=== PATIENT | female | born 1980 | race Caucasian/White ===

== ENCOUNTER 2019-02-01 06:02 | Day surgery (SDC) | payer OTHER, SELFPAY ==
[2019-02-01] VITALS (7 sets, daily range): BP systolic 113–122; BP diastolic 66–81; PULSE 60–81; RESP 16–18; TEMP 36.5–36.7; O2SAT 97–100; BMI 29.5
[2019-02-01 06:34] LABS: Internal QC Validated? YES +Cl - CLEAR BKGD; Pregnancy, Urine Negative Negative
--- NOTE | 2019-02-01 07:32 | DCINST_ITS ---
Discharge Diet: No Restrictions Discharge Activity: Return to Normal Activity Additional Activity Instructions:: Ear drops 5 drops left ear twice a day for 4 days. Allergies/Adverse Reactions: Allergies No Known Allergies Allergy (Verified 02/01/19 06:27) Medications to take at Discharge Mometasone Furoate [Nasonex] 1 spray NASAL BID 01/28/19 Primary Care Physician: Colby Benito MD [Primary Care Provider] - Test Results: Test results from this visit will be discussed in further detail at your follow- up appointment, if applicable.
[2019-02-01] MEDS: Ciprofloxacin 0.3% 2.5ml Bottle 1 DRP (07:44)
--- NOTE | 2019-02-01 07:45 | PCM.OPRPT ---
Report of Operation Date of Procedure: 02/01/19 Pre-Operative Diagnosis: chronic serous otitis media left ear Post-Operative Diagnosis: same Surgery/Procedure Performed:: Left myringtomy with tube Description of Surgical Findings:: clear middle ear fluid Type of Anesthesia:: General Anesthesiologist: Teddy Bingham Estimated Blood Loss (mL): none Description of Procedure: The patient was taken to the OR on 02/01/19. She was placed in the supine position on the OR table. She was given sufficient general anesthesia. The operating microscope was used throughout the entire case. A speculum was inserted into the left ear. The old tube was removed. An incision was placed in the anterior inferior quadrant. Clear fluid was suctioned from the middle ear space with a #3 suction. A Prisca Bobin tube was placed without difficulty. Cipro drops were instilled into the ear. She was awoken and brought to the recovery room in stable condition. Blood loss none. sponge, needle and instrument count were correct at the end of the procedure.
== END 2019-02-01 09:05 | disposition home or self-care (01) ==
LOC: SDC 06:04 → AC 06:06
PROVIDERS: Anesthesiology; Family Provider Family Medicine; PCP Family Medicine; Referring Provider Otolaryngology; Visit Provider Otolaryngology
PROC: (CPT 69436; principal; 2019-02-01 07:25)
DX: H65.22 Chronic serous otitis media, left ear (principal); H90.12 Conductive hearing loss, unilateral, left ear, with unrestricted hearing on the contralateral side; H69.83 Other specified disorders of Eustachian tube, bilateral
CPT/HCPCS: 69436; 81025; J2405

== ENCOUNTER → 2019-05-22 | Outpatient (CLI) | payer OTHER, SELFPAY ==
[2019-02-01 06:27] VITALS: BMI 29.5
== END | disposition home or self-care (01) ==
LOC: LABSPEC 12:23
PROVIDERS: PCP Family Medicine; Referring Provider Otolaryngology; Visit Provider Otolaryngology
DX: H92.10 Otorrhea, unspecified ear (principal)
CPT/HCPCS: 87070; 87075; 87077; 87186; 87205

== ENCOUNTER → 2021-01-16 | Outpatient (CLI) | payer OTHER, SELFPAY | END | disposition home or self-care (01) | LOC: LABSPEC 14:57 | PROVIDERS: PCP Family Medicine; Referring Provider Otolaryngology; Visit Provider Otolaryngology | DX: Z11.52 Encounter for screening for COVID-19 (principal) | CPT/HCPCS: 87635; U0005; U0003 ==

== ENCOUNTER → 2021-01-22 | Outpatient (CLI) | payer OTHER, SELFPAY | END | disposition home or self-care (01) | LOC: LABSPEC 15:20 | PROVIDERS: PCP Family Medicine; Visit Provider Otolaryngology | DX: H65.22 Chronic serous otitis media, left ear (principal) ==

== ENCOUNTER 2022-12-31 09:19 | Emergency (ER) | payer OTHER, SELFPAY ==
[2022-12-31 09:21] VITALS: BP 136/81; PULSE 64; RESP 14; TEMP 37.1; O2SAT 99; BMI 29.2
--- NOTE | 2022-12-31 09:32 | EDS_ITS ---
HPI HPI - GI History of Present Illness Chief Complaint: Abd Pain Narrative Narrative: 42-year-old female with right lower quadrant pain. She states it radiates into the right lower back. Patient states onset was about 5 AM this morning was acute. She describes it as sharp and burning. Patient states she does not believe she is , but does state that she has painful ovulation. She denies any history of ovarian cyst however. No urinary or vaginal complaints. No constipation or diarrhea. She has mild nausea. No fevers or chills. Patient states she called her [employer] and was referred to the urgent care and she states the urgent care checked her urinalysis and sent her to the ED. PFSH PFSH Home Medications mometasone 50 mcg/actuation nasal spray 1 spray NASAL BID 01/28/19 [History Last Taken Unknown] ondansetron 4 mg disintegrating tablet 4 mg PO Q8H PRN PRN Nausea #14 tabs 12/31/22 [Rx Last Taken Unknown] oxycodone 5 mg tablet 5 mg PO BID PRN pain 3 days #12 tabs 12/31/22 [Rx Last Taken Unknown] Allergy/AdvReac Type Severity Reaction Status Date / Time No Known Allergies Allergy Verified 12/31/22 09:25 Social History Smoking Status: Never smoker ROS ROS ED Constitutional Constitutional ED: Denies chills, fever(s) or sweats Eyes Eyes: Denies blurry vision or change in vision ENT ENT ED: Denies ear pain or sore throat Cardiovascular Cardiovascular: Denies chest pain, palpitations or racing heartbeat Respiratory/Chest Respiratory/Chest: Denies cough, dyspnea or sputum Gastrointestinal Gastrointestinal: Reports abdominal pain and nausea; Denies constipation, diarrhea or vomiting Genitourinary Genitourinary ED: Denies dysuria, hematuria or urinary frequency Musculoskeletal Musculoskeletal: Denies arthralgias, myalgias or neck pain Integumentary Denies abscess, Abrasions or rash Neurologic Neurologic: Denies headache(s), paresthesias or weakness Psychiatric Psychiatric: Denies anxiety, depression, suicidal ideation or suicidal thoughts Endocrine Endocrinology: Denies polydipsia or polyuria EXAM Physical Exam Const Vital Signs: 12/31/22 09:21 Temperature 98.7 F Temperature Source Temporal Pulse Rate 64 Respiratory Rate 14 Blood Pressure 136/81 H Blood Pressure Mean 99 Pulse Ox 99 Oxygen Delivery Method Room Air Positive well nourished General Appearance ED: NAD; Negative for pallor HEENT Reports moist mucous membranes normocephalic and atraumatic Eyes PERRL Resp normal respiratory effort Auscultation: Negative for rales, rhonchi or wheezes Cardio regular rate and regular rhythm GI Palpation: tender RLQ Neuro CN's II-XII intact bilaterally and moves all extremities Sensorium / Orientation: alert Motor Exam: strength 5/5 throughout Psych mental status grossly normal Skin General Skin Exam: Negative for jaundice or pallor MDM MDM MDM Narrative Medical decision making narrative: Patient presenting with right lower quadrant abdominal pain. This is acute in onset. Differential includes ovarian cyst, ovarian torsion, , UTI, pyelonephritis, colitis, constipation, dehydration, electrolyte abnormalities. CBC will be obtained to assess white blood cell count, hemoglobin, platelets, differential. BMP to assess renal function, electrolytes, glucose. Urinalysis to assess for UTI. hCG to assess for . Does not believe she is however. Patient medicated with Toradol and Zofran. On reevaluation at 9:54 AM she states she still having some pain but declines any further analgesia. Patient was then subsequently requesting something stronger was given morphine 4 mg. CBC shows a normal white blood cell count at 6.4. Hemoglobin 12.8. Platelets normal at 225. Renal function electrolytes unremarkable. Serum hCG negative. Urinalysis negative. CT of the abdomen pelvis was obtained and shows what looks like a dermoid cyst. The radiologist recommends an ultrasound to better clarify this. Transvaginal ultrasound was obtained and shows evidence of a dermoid cyst. Patient still having a lot of pain on exam was given a second dose of morphine. Findings were discussed with Dr. Jessica Arias who did come to see the patient at the bedside given her pain and abnormal findings on imaging. At this point is to send the patient home with oxycodone, Zofran. I recommended that she also do MiraLAX at home as she has a lot of stool burden on her CT. She is to drink plenty of fluids. Return precautions were discussed at length. Plan currently is for outpatient surgery. Impression: 1. Dermoid cyst 2. Nausea 3. Constipation Lab Data Attestation: I reviewed the patient's lab results. Labs: Laboratory Results - last 24 hr 12/31/22 12/31/22 09:31 10:26 WBC 6.4 RBC 4.17 L Hgb 12.8 Hct 39.2 MCV 94.0 MCH 30.7 MCHC 32.7 RDW Std Deviation 43.1 RDW Coeff of Micki 12.4 Plt Count 225 MPV 9.0 Immature Gran % (Auto) 0.300 Neut % (Auto) 75.4 H Lymph % (Auto) 18.5 L [place] % (Auto) 4.7 Eos % (Auto) 0.8 Baso % (Auto) 0.3 Absolute Neuts (auto) 4.8 Absolute Lymphs (auto) 1.18 Nucleated RBC % 0 Sodium 139 Potassium 3.9 Chloride 110 H Carbon Dioxide 25.0 Anion Gap 4 L BUN 28 H Creatinine 0.85 Estim Creat Clear Calc 75.21 Est GFR (MDRD) Af Amer 94 Est GFR (MDRD) Non-Af 78 BUN/Creatinine Ratio 32.9 H Glucose 93 Calcium 8.6 Serum , Qual NEGATIVE Urine Color Yellow Urine Clarity Clear Urine pH 5.0 Ur Specific [place] 1.025 Urine Protein Negative Urine Glucose (UA) Normal Urine Ketones Negative Urine Occult Blood Negative Urine Nitrite Negative Urine Bilirubin Negative Urine Urobilinogen Normal Ur Leukocyte Esterase 25 H Urine RBC 0 SEEN Urine WBC 0-5 SEEN Ur Squamous Epith Cells 0 SEEN Urine Bacteria 0 SEEN Urine Mucus 0 SEEN Radiography Diagnostic Testing: Clinical Impression(s) from Imaging Studies Abdomen/Pelvis CT 12/31/22 10:06 IMPRESSION: Findings suggestive of a dermoid in the right adnexa as described above. Correlation with a ultrasound of the pelvis is recommended. Enlarged uterus. Electronically Signed: Lucas Gomez MD at 10:57 EDT , Transvaginal US 12/31/22 11:01 IMPRESSION: Complex mass in the right adnexa as described in keeping with the CT findings suggestive of a dermoid cyst. Electronically Signed: Lucas Gomez MD at 12:22 EDT , ADDENDUM: 12/31/22 1332 IMPRESSION: undefined Discharge Plan Triage Chief Complaint: Abd Pain ED Provider: Nikolai Cisse Dx/Rx/DC Orders Instructions: Ovarian Cysts Prescriptions: New oxycodone 5 mg tablet 5 mg PO BID PRN (Reason: pain) 3 Days Qty: 12 0RF ondansetron 4 mg tablet,disintegrating 4 mg PO Q8H PRN PRN (Reason: Nausea) Qty: 14 0RF No Action mometasone 1 SPRAY spray,non-aerosol 1 spray NASAL BID Primary Care Provider: Care Physician,No Primary Referrals: Geovanny Arias MD [Med Staff - Active Staff] - As soon as possible Care Physician,No Primary [Primary Care Provider] - Disposition Disposition: Home, Self Care
[2022-12-31] MEDS: Ketorolac 30 MG/ML Syringe 15 MG IV (09:37)
[2022-12-31] MEDS: Ondansetron 4 MG/2 ML Vial IV (09:37)
[2022-12-31 09:45] LABS: Absolute Lymphocyte Count 1.18 X10^3/uL (0.83-4.51); Absolute Neutrophil Count 4.8 X10^3/uL (2.0-7.7); Basophil# 0.02 X10^3/uL; Basophil% 0.3 % (0-1); Eosinophil# 0.05 X10^3/uL; Eosinophils% 0.8 % (0-5); Hematocrit 39.2 % (37-47); Hemoglobin 12.8 g/dL (12.0-15.0); Lymphocyte # 1.18 X10^3/ul (0.83-4.51); Lymphocyte % 18.5 % (19-41); Mean Corp Hgb Conc 32.7 g/dL (32-36); Mean Corpuscular Hgb 30.7 pg (27.0-32.0); Monocyte% 4.7 % (0-10); NRBC Flagged by Analyzer 0 % (0-5); Neutrophil # 4.81 X10^3/uL (2.7-7.7); Neutrophil % 75.4 % (47-70); Platelet Count 225 K/mm3 (150-450); RBC Distribution Width CV 12.4 % (11.6-14.6); RBC Distribution Width SD 43.1 fl (35.1-43.9); Red Blood Count 4.17 M/mm3 (4.2-5.4); White Blood Count 6.4 K/mm3 (4.4-11.0)
[2022-12-31 09:59] LABS: Anion Gap 4 (5-15); BUN 28 mg/dL (7-18); BUN/Creat Ratio 32.9 RATIO (10-20); Calcium,Total 8.6 mg/dL (8.5-10.1); Chloride 110 mmol/L (98-107); Creatinine, Serum 0.85 mg/dL (0.55-1.02); EST Glomerular Filtration Rate 78 mL/min (>60); Est Glom Filt Rate - Afr Amer 94 mL/min (>60); Estimated Creatinine Clearance 75.21 ml/min; Glucose 93 mg/dL (74-106); Potassium 3.9 mmol/L (3.5-5.1); Sodium Level 139 mmol/L (136-145)
[2022-12-31 10:05] LABS: Internal QC Validated? YES +Cl - CLEAR BKGD; Pregnancy, Serum, hCG Quali. NEGATIVE Negative
--- NOTE | 2022-12-31 10:06 | CT_ITS ---
STUDY: CT ABDOMEN AND PELVIS WITHOUT CONTRAST REASON FOR EXAM: Female, 42 years old. Right lower quadrant pain. Nausea. RADIATION DOSAGE (If Supplied By Facility): CTDIvol = ( 8.83 ) mGy, DLP = ( 426.21 ) mGycm TECHNIQUE: Transaxial images were obtained from the dome of the diaphragm to the symphysis pubis without oral contrast, and without intravenous contrast. Sagittal and coronal images were reconstructed. Individualized dose optimization techniques were used for this CT. COMPARISON: None. FINDINGS: The visualized lung bases are unremarkable. The visualized portions of the heart are within normal limits. Normal liver. Normal gallbladder and extrahepatic biliary system. Normal spleen. Normal pancreas. Normal bilateral adrenal glands. Normal right kidney. Normal left kidney. Normal visualized stomach. Normal small intestine. Large amount of fecal material is seen in the colon. The appendix is visualized and appears normal. There is scattered atherosclerotic calcification of the abdominal aorta, without a demonstrated aneurysm. Normal inferior vena cava. Normal retroperitoneum. Normal urinary bladder. There is a 4.57 x 4.5 cm hypodense mass in the right adnexa with dense calcification along its inferior lateral portion. A focus of fat is seen within the. This is suggestive of a dermoid. Uterine enlargement. Normal abdominal wall. This space narrowing and disc degeneration with spondylosis at the L4-L5 level. CT/Abdomen/Pelvis without Cont IMPRESSION: Findings suggestive of a dermoid in the right adnexa as described above. Correlation with a ultrasound of the pelvis is recommended. Enlarged uterus. Electronically Signed: Lucas Gomez MD at 10:57 EDT ,
[2022-12-31 10:34] LABS: Bacteria 0 SEEN /hpf (None Seen); Mucous, Urine 0 SEEN /hpf (<or=2+); Red Blood Cells-Urine 0 SEEN /hpf (0-5); Squamous Epithelial Cells - UA 0 SEEN /hpf (5-10)
[2022-12-31 10:38] LABS: Color, Urine Yellow (Yellow); Glucose, Dipstick Normal (Normal); Ketone-Dipstick Negative (Negative); Leukocyte Esterase-Dipstick 25 /ul (Negative); Nitrite-Dipstick Negative (Negative); Occult Blood-Urine Negative /ul (Negative); Protein-Dipstick Negative (Negative); Specific Gravity, Urine 1.025 (1.002-1.030); Urine Bilirubin Dipstick Negative (Negative); Urine Clarity Clear (Clear); Urine Urobilinogen Normal (Normal)
[2022-12-31 10:52] LABS: White Blood Cells 0-5 SEEN /hpf (0-5)
[2022-12-31] MEDS: Morphine 4 MG/ML Syringe IV ×2 (10:52→12:29)
--- NOTE | 2022-12-31 11:01 | US_ITS ---
STUDY: ULTRASOUND OF THE FEMALE PELVIS - COMPLETE REASON FOR EXAM: Female, 42 years old. Dermoid cyst LMP: December 17, 2022. TECHNIQUE: Transvaginal TECHNICAL QUALITY: Adequate. COMPARISON: Comparison is made with prior CT scan of the abdomen and pelvis done earlier in the day. FINDINGS: The uterus is anteverted and is in a midline position. The uterus measures 11.9 cm x 7.4 cm x 5.9 cm. Normal uterine cervix. The endometrium measures 14.2 mm in thickness, and is heterogeneous (striated). There is no demonstrated endometrial mass. There is no demonstrated myometrial mass. I.U.D. - The patient does not have an I.U.D. The right ovary is visualized. The right ovary measures 6.8 cm x 6.3 cm x 3.8 cm. Within it, is a complex heterogeneous mass measuring 5.6 cm x 4.5 sided by 4 cm. Calcification is seen within it and this corresponds to the CT findings. This most likely represents a very malignant. There is also evidence of a 2.6 cm x 2.1 cm x 2.5 cm complex cystic structure adjacent to the previously mentioned nodule. There is no visualized right adnexal mass or complex lesion. There is normal arterial and normal venous vascularity. The left ovary is visualized. The left ovary measures 2.5 cm x 2.9 cm x 1.7 cm. There is no left ovarian cyst or ovarian mass. There is no visualized left adnexal mass or complex lesion. There is normal arterial and normal venous vascularity. There is minimal fluid in the cul-de-sac. US/Transvaginal Non- IMPRESSION: Complex mass in the right adnexa as described in keeping with the CT findings suggestive of a dermoid cyst. Electronically Signed: Lucas Gomez MD at 12:22 EDT ,
[2022-12-31] MEDS: 0.9% Normal Saline (1000mL) 1,000 ML 999 ML IV (12:29)
--- NOTE | 2022-12-31 13:43 | HP.PCM_ITS ---
HPI - General General Date of Service: 12/31/22 Chief Complaint: Abdominal pain HPI Narrative MARIA D SUN, is a 42 F who presents with lower abdominal pain. Pain started earlier this morning and is sharp in nature. She is ovulating at this time and usually has pain with this but not so intense. Pain radiates to the back & is worse on the right side. Morphine has helped with pain. PFSH Home Medications mometasone 50 mcg/actuation nasal spray 1 spray NASAL BID 01/28/19 [History Last Taken Unknown] ondansetron 4 mg disintegrating tablet 4 mg PO Q8H PRN PRN Nausea #14 tabs 12/31/22 [Rx Last Taken Unknown] oxycodone 5 mg tablet 5 mg PO BID PRN pain 3 days #12 tabs 12/31/22 [Rx Last Taken Unknown] Allergy/AdvReac Type Severity Reaction Status Date / Time No Known Allergies Allergy Verified 12/31/22 09:25 Social History Smoking Status: Never smoker Vital Signs Vital Signs Vital Signs: 12/31/22 09:21 Temperature 98.7 F Temperature Source Temporal Pulse Rate 64 Respiratory Rate 14 Blood Pressure 136/81 H Blood Pressure Mean 99 Pulse Ox 99 Oxygen Delivery Method Room Air Weight Weight: 170 lb 1.6 oz Body Mass Index (BMI) 29.2 Physical Exam Const alert, oriented x3 and no apparent distress Resp normal respiratory effort GI soft to palpation GI Narrative: mild RLQ tenderness, otherwise NT Extremity no calf tenderness Results Lab / Micro Data Attestation: I reviewed the patient's lab results. 12/31/22 09:31 12/31/22 09:31 Labs: Laboratory Results - last 24 hr 12/31/22 09:31: WBC 6.4, RBC 4.17 L, Hgb 12.8, Hct 39.2, MCV 94.0, MCH 30.7, MCHC 32.7, RDW Std Deviation 43.1, RDW Coeff of Micki 12.4, Plt Count 225, MPV 9.0, Immature Gran % (Auto) 0.300, Neut % (Auto) 75.4 H, Lymph % (Auto) 18.5 L, [place] % (Auto) 4.7, Eos % (Auto) 0.8, Baso % (Auto) 0.3, Absolute Neuts (auto) 4.8, Absolute Lymphs (auto) 1.18, Nucleated RBC % 0, Sodium 139, Potassium 3.9, Chloride 110 H, Carbon Dioxide 25.0, Anion Gap 4 L, BUN 28 H, Creatinine 0.85, Estim Creat Clear Calc 75.21, Est GFR (MDRD) Af Amer 94, Est GFR (MDRD) Non-Af 78, BUN/Creatinine Ratio 32.9 H, Glucose 93, Calcium 8.6, Serum , Qual NEGATIVE 12/31/22 10:26: Urine Color Yellow, Urine Clarity Clear, Urine pH 5.0, Ur Specific [place] 1.025, Urine Protein Negative, Urine Glucose (UA) Normal, Urine Ketones Negative, Urine Occult Blood Negative, Urine Nitrite Negative, Urine Bilirubin Negative, Urine Urobilinogen Normal, Ur Leukocyte Esterase 25 H, Urine RBC 0 SEEN, Urine WBC 0-5 SEEN, Ur Squamous Epith Cells 0 SEEN, Urine Bacteria 0 SEEN, Urine Mucus 0 SEEN Radiology Impression Abdomen/Pelvis CT 12/31/22 10:06 IMPRESSION: Findings suggestive of a dermoid in the right adnexa as described above. Correlation with a ultrasound of the pelvis is recommended. Enlarged uterus. Electronically Signed: Lucas Gomez MD at 10:57 EDT , Transvaginal US 12/31/22 11:01 IMPRESSION: Complex mass in the right adnexa as described in keeping with the CT findings suggestive of a dermoid cyst. Electronically Signed: Lucas Gomez MD at 12:22 EDT , ADDENDUM: 12/31/22 1332 IMPRESSION: undefined Assessment & Plan Assessment/Plan (1) Lower abdominal pain: PLAN: 42yo female (2) Dermoid cyst of right ovary: PLAN: Plan Reviewed imaging showing right dermoid cyst. No physicaly or imaging findings indicate need to surgical management at this time, Patient also with findings of constipation on CT. Recommend outpatient pain management and also relief of constipation by diet & OTC miralax. Plan for follow up with to schedule outpatient surgery.
== END 2022-12-31 13:57 | disposition home or self-care (01) ==
PROVIDERS: Emergency Provider Student in an Organized Health Care Education/Training Program; Visit Provider Student in an Organized Health Care Education/Training Program
DX: D27.0 Benign neoplasm of right ovary (principal); K59.00 Constipation, unspecified; R11.0 Nausea
CPT/HCPCS: 74176; 76830; 80048; 81001; 84703; 85025; 96361; 96374; 96375; 96376; 99283; J7030; A4216; J2405

== ENCOUNTER 2023-01-03 12:18 | Emergency (ER) | payer OTHER, SELFPAY ==
[2023-01-03 12:18] VITALS: BP 145/81; PULSE 57; RESP 18; TEMP 36.6; O2SAT 100; BMI 29.3
--- NOTE | 2023-01-03 14:53 | US_ITS ---
STUDY: ULTRASOUND TRANSVAGINAL CLINICAL: Female, 42 years old. vaginal bleeding TECHNIQUE: Transvaginal COMPARISON: December 31, 2022 pelvic ultrasound. FINDINGS: Normal uterine size measuring 11.4 x 7.2 x 5.8 cm in maximal craniocaudal dimension. There are no myometrial masses. Myometrium appears heterogeneous. Possible Venetian blind sign. Nabothian cysts. Normal endometrial thickness measuring 9.5 mm. There are no endometrial masses, and there is no fluid in the endometrial cavity. Normal uterine cervix. Normal right ovary, measuring 8.6 x 4.3 x 4.5 cm. cm. There are multiple follicles without a dominant cyst. Blood flow normal. Complex mass measures 5.7 x 4.7 x 4 cm. Normal left ovary, measuring 3.1 x 2.9 x 1.7 cm. There are multiple follicles without a dominant cyst. There is mild free fluid in the pelvis. Polycystic ovary disease: No. US/Transvaginal Non- IMPRESSION: Stable complex right ovarian mass without evidence of torsion. Possible adenomyomatosis. Electronically Signed: Abhi Giordano MD at 16:47 EDT ,
--- NOTE | 2023-01-03 14:55 | EX.ED.DYSGE1 ---
HPI History of Present Illness Chief Complaint: Abd Pain Detail of Chief Complaint: Pain and vaginal bleeding Informant: patient Narrative Narrative: Patient presents to the emergency department complaint of right sided abdominal pain that she said for last 3 days. She was seen in the emergency department 3 days ago and had a CT scan of the abdomen pelvis as well as an ultrasound that showed a complex cyst in the right adnexa measuring about 5 x 4 cm. Patient was advised to follow-up with her [facility]. Patient was given oxycodone for pain for home. Today she woke up this morning around 7 and noted she had vaginal bleeding. She is currently on her second pad. She denies any clots. Pain has actually lessened since she started having bleeding. She was in contact with her [facility] office and was advised to come in and get evaluated. States that she is midcycle and her last menstrual period was about 2 weeks ago. Prior similar symptoms: No PFSH PFSH Home Medications mometasone 50 mcg/actuation nasal spray 1 spray NASAL BID 01/28/19 [History Last Taken Unknown] ondansetron 4 mg disintegrating tablet 4 mg PO Q8H PRN PRN Nausea #14 tabs 12/31/22 [Rx Last Taken Unknown] oxycodone 5 mg tablet 5 mg PO BID PRN pain 3 days #12 tabs 12/31/22 [Rx Last Taken Unknown] Allergy/AdvReac Type Severity Reaction Status Date / Time No Known Allergies Allergy Verified 01/03/23 12:20 Social History Smoking Status: Never smoker ROS ROS ED Review of Systems ROS Unobtainable: other Constitutional Constitutional ED: Reports lethargy; Denies chills, fever(s), sweats or weight loss Eyes Eyes: Denies blurry vision, change in vision or diplopia ENT ENT ED: Denies rhinorrhea or sore throat Cardiovascular Cardiovascular: Denies chest pain, orthopnea or racing heartbeat Respiratory/Chest Respiratory/Chest: Denies cough, dyspnea, dyspnea on exertion, orthopnea or sputum Gastrointestinal Gastrointestinal: Reports abdominal pain; Denies diarrhea, nausea or vomiting Genitourinary Genitourinary ED: Reports other Details: Vaginal bleeding ; Denies dysuria, hematuria or urinary frequency Musculoskeletal Musculoskeletal: Denies arthralgias, back pain, myalgias or neck pain Integumentary Denies abscess, Abrasions or rash Neurologic Neurologic: Denies headache(s) or weakness Psychiatric Psychiatric: Denies anxiety, depression or suicidal thoughts Endocrine Endocrinology: Denies polydipsia, polyphagia or polyuria Hematologic/Lymphatic Hematologic/Lymphatic: Denies easy bleeding, easy bruising or lymphadenopathy Allergic/Immunologic Allergic/Immunologic ED: Denies mouth swelling, tongue swelling or urticaria EXAM Physical Exam Const Vital Signs: 01/03/23 12:18 01/03/23 15:04 Temperature 97.8 F Temperature Source Temporal Pulse Rate 57 L Pulse Rate [Lying] 60 Pulse Rate [Sitting (for 1 minute prior to obtaining)] 61 Pulse Rate [Standing (for 1 minute prior to obtaining)] 70 Respiratory Rate 18 Blood Pressure 145/81 H Blood Pressure [Lying] 116/79 Blood Pressure [Sitting (for 1 minute prior to obtaining)] 133/81 H Blood Pressure [Standing (for 1 minute prior to obtaining)] 140/91 H Blood Pressure Mean 102 Blood Pressure Mean [Lying] 91 Blood Pressure Mean [Sitting (for 1 minute prior to obtaining)] 98 Blood Pressure Mean [Standing (for 1 minute prior to obtaining)] 107 Pulse Ox 100 Oxygen Delivery Method Room Air Positive well nourished and well developed General Appearance ED: well developed and NAD HEENT Reports TM's clear and moist mucous membranes normocephalic and atraumatic; Negative for trauma or tenderness Tympanic Membrane ED: Yes TM's clear Eyes PERRL and EOMs intact bilaterally General Eye ED: Negative for pale conjunctiva or scleral icterus Neck no lymphadenopathy, supple and no JVD General: Negative for tenderness Chest Wall inspection of chest normal and palpation of chest normal Chest: Negative for tenderness Resp normal respiratory effort and clear to auscultation bilaterally Effort and Inspection: Negative for respiratory distress or pain with movement Auscultation: Negative for rhonchi, wheezes or diminished lung sounds Cardio regular rate, regular rhythm, S1 normal heart sound, S2 normal heart sound and no murmurs Peripheral Pulses: pulses 2+ throughout GI normal to inspection, nondistended, normoactive bowel sounds, soft to palpation, non-distended and no masses GI Narrative: To palpation over right lower quadrant with guarding. There is no rebound, rigidity, or peritoneal signs. Back/Spine no CVA tenderness and no thoracic nor lumbar tenderness Extremity normal to inspection General Extremety ED: Negative for edema General Extremity: Negative for edema Neuro oriented x3, CN's II-XII intact bilaterally, no sensory deficits noted and gait normal Sensorium / Orientation: awake, alert, oriented to person, oriented to place and oriented to time Motor Exam: strength 5/5 throughout and strength abnormal Psych mental status grossly normal Skin no rashes or lesions noted and no wounds MDM MDM MDM Narrative Medical decision making narrative: Patient presents with vaginal bleeding that started today and right lower abdomen pain x3 days. Since 7 AM she is only currently on her second pad. She denies feeling lightheaded or dizzy. IV line was established. Patient had orthostatic vital signs that were negative. CBC with differential showed a white of 6.3 with hemoglobin of 14.5 and platelet count of 246. Pelvic ultrasound obtained showed a stable mass in the right adnexa with a otherwise normal right ovary with normal flow. Case was discussed with [facility]. Dr. Lugo is well recommended outpatient follow-up for patient for possible surgical intervention and removal of the adnexal mass. Patient has oxycodone for pain at home. Patient advised to return if persistent heavy bleeding, worsening pain, or condition should worsen in any way. Lab Data Attestation: I reviewed the patient's lab results. Labs: Laboratory Results - last 24 hr 01/03/23 15:02 WBC 6.3 RBC 4.75 Hgb 14.5 Hct 44.2 MCV 93.1 MCH 30.5 MCHC 32.8 RDW Std Deviation 41.3 RDW Coeff of Micki 12.1 Plt Count 246 MPV 9.4 Immature Gran % (Auto) 0.300 Neut % (Auto) 65.2 Lymph % (Auto) 26.2 [place] % (Auto) 6.2 Eos % (Auto) 1.6 Baso % (Auto) 0.5 Absolute Neuts (auto) 4.1 Absolute Lymphs (auto) 1.64 Nucleated RBC % 0 Serum , Qual NEGATIVE Blood Type A POSITIVE Antibody Screen NEGATIVE Radiography Diagnostic Testing: Clinical Impression(s) from Imaging Studies Transvaginal US 01/03/23 14:53 IMPRESSION: Stable complex right ovarian mass without evidence of torsion. Possible adenomyomatosis. Electronically Signed: Abhi Giordano MD at 16:47 EDT , Discharge Plan Triage Chief Complaint: Abd Pain ED Provider: Hollie Justice Dx/Rx/DC Orders Clinical Impression: Mass of ovary, Vaginal bleeding, Abdominal pain Instructions: Abdominal Pain, ED Dysfunctional Uterine Bleeding, ED Ovarian Cyst Prescriptions: No Action mometasone 1 SPRAY spray,non-aerosol 1 spray NASAL BID oxycodone 5 mg tablet 5 mg PO BID PRN (Reason: pain) 3 Days Qty: 12 0RF ondansetron 4 mg tablet,disintegrating 4 mg PO Q8H PRN PRN (Reason: Nausea) Qty: 14 0RF Primary Care Provider: Care Physician,No Primary Referrals: Care Physician,No Primary [Primary Care Provider] - Activity Restrictions/Additional Instructions: Your [facility] office will follow-up with you regarding scheduling surgical resection of ovarian cyst/mass Disposition Disposition: Home, Self Care Discharge Date/Time: 01/03/23 17:20
[2023-01-03 15:04] VITALS: BP 116/79; BP 133/81; BP 140/91; PULSE 60; PULSE 61; PULSE 70
[2023-01-03 15:26] LABS: Internal QC Validated? YES +Cl - CLEAR BKGD; Pregnancy, Serum, hCG Quali. NEGATIVE Negative; Record Kit Lot#, Serum Preg. HCG0000667200
[2023-01-03 15:39] LABS: Absolute Lymphocyte Count 1.64 X10^3/uL (0.83-4.51); Absolute Neutrophil Count 4.1 X10^3/uL (2.0-7.7); Basophil# 0.03 X10^3/uL; Basophil% 0.5 % (0-1); Eosinophils% 1.6 % (0-5); Hematocrit 44.2 % (37-47); Hemoglobin 14.5 g/dL (12.0-15.0); Lymphocyte # 1.64 X10^3/ul (0.83-4.51); Lymphocyte % 26.2 % (19-41); Mean Corp Hgb Conc 32.8 g/dL (32-36); Mean Corpuscular Hgb 30.5 pg (27.0-32.0); Mean Corpuscular Volume 93.1 fL (81-99); Mean Platelet Vol. 9.4 fl (6.2-12.0); Monocyte# 0.39 X10^3/uL; Monocyte% 6.2 % (0-10); NRBC Flagged by Analyzer 0 % (0-5); Neutrophil # 4.08 X10^3/uL (2.7-7.7); Neutrophil % 65.2 % (47-70); Platelet Count 246 K/mm3 (150-450); RBC Distribution Width CV 12.1 % (11.6-14.6); RBC Distribution Width SD 41.3 fl (35.1-43.9); Red Blood Count 4.75 M/mm3 (4.2-5.4); White Blood Count 6.3 K/mm3 (4.4-11.0)
[2023-01-03] MEDS: oxyCODONE 5 MG Tablet PO (17:11)
== END 2023-01-03 17:20 | disposition home or self-care (01) ==
PROVIDERS: Emergency Provider Emergency Medicine; Visit Provider Emergency Medicine
DX: N83.8 Other noninflammatory disorders of ovary, fallopian tube and broad ligament (principal); N93.9 Abnormal uterine and vaginal bleeding, unspecified
CPT/HCPCS: 76830; 84703; 85025; 86850; 86900; 86901; 99282; A4216

== ENCOUNTER 2023-01-24 09:17 | Day surgery (SDC) | payer OTHER, SELFPAY ==
--- NOTE | 2023-01-10 17:57 | PCM.HP.BLA ---
History and Physical Date of Admission: 01/24/23 HPI: The patient is a 42 year old female presenting for pre-operative visit. She is scheduled for Pre-Op History and Physical ? HPI: The patient is a 42 year old female presenting for pre-operative visit. She is scheduled for Hysteroscopy D&C and endometrial ablation and RSO and left salpingectomy, for RLQ pain, right ovarian cyst, sterilization request and menorrhagia on 02/24/23. Procedure discussed along with risks, benefits and complications. Other alternatives discussed for management. Consent form signed? No. ? ? PAST MEDICAL HISTORY PAST MEDICAL HISTORY Diagnosis Date ? fibromyalgia ? ? Seasonal allergies ? ? ? PAST SURGICAL HISTORY PAST SURGICAL HISTORY Procedure Laterality Date ? EXCISION PILONIDAL CYST/SINUS COMPLICATED ? ? ? EXPLORE CRANIOTOMY N/A 06/08/2021 ? drain fluid ? INSERT INTRAUTERINE DEVICE ? 09/15/2007 ? Mirena ? IUD REMOVAL (PHOTOVOLTAIC SUBCONTRACTOR DEPT)_*FL ? 09/02/2008 ? Mirena ? MYRINGOTOMY ASPIR&/EUSTACHIAN TUBE NFLTJ Left 01/2019 ? PAST SURGICAL HISTORY OF ? ? ? 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 PAST SURGICAL HISTORY OF ? 06/2013 ? removal of polyp on sinus ? TONSILLECTOMY PRIMARY/SECONDARY <AGE 13 ? ? ? Tonsillectomy ? ? ? CURRENT MEDICATIONS Current Outpatient Medications Medication Sig Dispense Refill ? acetaminophen (TYLENOL) 500 mg tablet Take 500 mg by mouth every 8 hours as needed. ? ? ? Ibuprofen 200 mg cap Take by mouth every 6 hours as needed. ? ? ? ondansetron orally disintegrating (ZOFRAN ODT) 4 mg disintegrating tablet dissolve 1 tablet ON TONGUE every 8 hours if needed for nausea OR vomiting ? ? ? No current facility-administered medications for this visit. ? ? ALLERGIES: Patient has no known allergies. ? PERSONAL HISTORY: SOCIAL HISTORY Social History ? Tobacco Use ? Smoking status: Never ? Smokeless tobacco: Never Vaping Use ? Vaping Use: Never used Substance Use Topics ? Alcohol use: Yes ? ? Comment: socially, NOT WHILE ? Drug use: No ? FAMILY HISTORY: FAMILY HISTORY FAMILY HISTORY Problem Relation Age of Onset ? No Known Problems Mother ? ? Stroke Father ? ? Hypertension Father ? ? Prostate Cancer Father ? ? Arthritis Sister ? ? RHEUMATOID ? Heart Maternal Grandmother ? ? BYPASS SURGERY ? Heart Maternal Grandfather ? ? BYPASS SURGERY ? Diabetes Paternal Grandmother ? ? Heart Paternal Grandfather ? ? Seizures Other ? ? COUSIN ? ? REVIEW OF SYMPTOMS: GENERAL: denies fevers or chills ENDOCRINOLOGY: has not been on steroids Cardiology : denies palpitations or chest pain Respiratory: denies SOB or cough Hematology: denies history of prolonged bleeding or easy bruising or VTE Allergy: Denies history of personal or family history of allergy to anesthesia ? PHYSICAL EXAMINATION: ? VITALS: Last menstrual period 12/17/2022. ? GENERAL: The patient is well nourished, well hydrated in no acute distress. , The patient is oriented to time, place, and person. ? ? IMPRESSION: Right ovarian dermoid cyst, sterilization request, menorrhagia, endometrial polyp ? PLAN: The risks/benefits/alternatives and personal involved for the planned hysteroscopy D&C with endometrial ablation and laparoscopic RSO and left salpingectomy were reviewed with the patient. Her questions were answered to her satisfaction and she desires to proceed. Consent was signed. I reviewed with her postop instructions and expectations. ? ? I have reviewed and updated past medical and surgical history, medications and allergies Assessment & Plan Assessment/Plan (1) Dermoid cyst of right ovary: (2) Lower abdominal pain: (3) Menorrhagia: (4) Endometrial polyp: (5) RLQ abdominal pain: (6) Sterilization consult:
[2023-01-24] VITALS (9 sets, daily range): BP systolic 98–116; BP diastolic 48–71; PULSE 40–72; RESP 16–18; TEMP 36.4–36.8; O2SAT 96–100; BMI 29.0
--- NOTE | 2023-01-24 | OV_PTH ---
PATIENT: MARIA D SUN [place] [facility] [place][id number] AGE/SX: 43/F ROOM: RE01/24/[address]: Dr. Kristina Simon MD : [id number] BED: DIS: 01/24/2023 SPEC #: [id number] RECD: 01/24/23 14:12 STATUS: MOHINDER AVALOS #: [id number] CALEB: 01/24/23 00:[address]: Kristina Simon DEPT: SURGICAL PATHOLOGY RECD BY: Tolu Villalta ENTERED: 01/24/23 14:13 SP TYPE: OVARY OTHR DR: No Primary Care Phys Tissues: A - Right ovary B - Endometrium, NOS Procedures: Decalcification bone/plaque Surgery Specimen Level IV Surgery Specimen Level V HEADER OPERATION: Laparoscopic salpingo-oophorectomy PRE-OP DIAGNOSIS: Sterilization, RLQ abdominal pain, endometrial polyp, menorrhagia, dermis cyst of right ovary TISSUE SUBMITTED: A - bilateral fallopian tubes, right ovary, B - Endometrial curettings MICROSCOPIC DIAGNOSIS A. Bilateral fallopian tubes and right ovary: Right ovary - Mature cystic teratoma (dermoid cyst). Right fallopian tube - No pathologic change. Left fallopian tube - No pathologic change. B. Endometrium, curettings: Secretory endometrium. AM:herminio 01/27/2023 MICROSCOPIC DESCRIPTION Slides are reviewed. GROSS DESCRIPTION A - Received in fixative is one container labeled with the patient's name and designated bilateral fallopian tubes and right ovary. The specimen consists of right ovary and adjacent right fallopian tube and detached left fallopian tube. The left fallopian tube measures 5.5 cm in length and 0.7 cm in diameter. A detached fimbrial end is noted, most likely portion of the fimbrial end of the left fallopian tube. Sections reveal unremarkable cut surfaces. The right fallopian tube measures 4.0 cm in length and up to 1.0 cm in diameter. It is similar appearance to left. No tubo-ovarian adhesions are identified. The soft to cystic previously ruptured right ovary measures 6.0 x 5.5 x 3.0 cm and weighs 28 gm. The outer surface is smooth. Sections reveal multiple cystic areas. Sections also reveal a focal area filled with sebum-like material. Focal area also shows bone formation. Payroll Analyst sections are submitted in six cassettes as follows: 1 - left fallopian tube, 2 - right fallopian tube, 3-6 - right ovary. Cassette 6 is submitted after decalcification. B - Received in fixative is one container labeled with the patient's name and designated endometrial curettings. The specimen consists of multiple irregular fragments of singletary-pink soft tissue that in aggregate measure 7.5 x 3.0 x 0.2 cm. The entire specimen is submitted in three cassettes. / SJ:herminio 01/24/2023 TC:1 CPT: 18396, 39272 x3, 25390
[2023-01-24 09:50] LABS: Internal QC Validated? YES +Cl - CLEAR BKGD; Pregnancy, Urine Negative Negative; Record Kit Lot#,Urine Preg 667200
[2023-01-24] MEDS: Ketorolac 30 MG/ML Syringe IV (09:57)
[2023-01-24] MEDS: Gabapentin 400 MG Capsule PO (09:57)
[2023-01-24] MEDS: Lactated Ringers 1,000 ML 15 ML IV (09:57)
[2023-01-24] MEDS: Acetaminophen 500 MG Tablet 1000 MG PO (09:57)
--- NOTE | 2023-01-24 11:07 | PCM.DC ---
Discharge Instructions Diet Discharge Diet: No restrictions Activity May resume sexual activity in: 2 weeks Dressing / Incision Call your doctor if your incision/area has: Sudden Increased Bleeding and Foul Smelling Discharge Call your doctor if you observe: Fever of 101 or Higher Cleanse incision/area with: Soap & Water (Your incisions have skin glue and it can get wet. Leave on until it falls off) Follow Up Care Please Follow Up With: Kristina Simon MD When: 1-2 weeks or as needed. Call [phone] or send a [employer] message for any nonurgent questions. Test Results: Test results from this visit will be discussed in further detail at your follow-up appointment, if applicable. Discharge Plan Admission Primary Reason for Your Visit: Right ovary removal, tubal sterilization, endometrial ablation Attending Provider: Kristina Simon Primary Care Provider: Care Physician,Kadie Primary Discharge Orders/Prescriptions Prescriptions: New oxycodone 5 mg tablet 5 mg PO Q8H PRN (Reason: severe pain) 5 Days Qty: 7 0RF Continued mometasone 1 SPRAY spray,non-aerosol 1 spray NASAL BID PRN (Reason: nasal congestion) ondansetron 4 mg tablet,disintegrating 4 mg PO Q8H PRN PRN (Reason: Nausea) Qty: 14 0RF acetaminophen [Acetaminophen Pain Relief] 500 mg tablet 500 mg PO Q6H PRN (Reason: pain) ibuprofen 200 mg capsule 600 mg PO Q8H PRN (Reason: pain) Referrals / Follow Up: Care Physician,No Primary [Primary Care Provider] - Disposition Disposition (needs filled in before D/C Order can be placed): Home, Self Care
--- NOTE | 2023-01-24 11:08 | OP.PCM_ITS ---
Problems Associated Problem List Diagnoses (1) Sterilization consult: (2) RLQ abdominal pain: (3) Endometrial polyp: (4) Menorrhagia: (5) Dermoid cyst of right ovary: Report of Operation Date of Procedure: 01/24/23 Pre-Operative Diagnosis: RLQ pain, right ovarian dermoid cyst, menorrhagia, endometrial polyp, sterilization request Post-Operative Diagnosis: same Surgery/Procedure Performed:: Laparoscopic RSO, left salpingectomy, hysteroscopy D&C with endometrial ablation Description of Surgical Findings:: torsed right ovary w/ compex cyst, normal uterus and left tube and ovary, normal cervix and vagina, lush thick endometrium w/ polypoid appearing tissue anteriorly Surgeon: Kristian Simon chucking machine set up operator tool: Gwen Benito chucking machine set up operator tool: Tiffanie Mckeon ms3 Type of Anesthesia: General Anesthesiologist: Marianela Sigala Special Medications: none Specimen's removed: right tube and ovary, left tube, endometrial curretings Drains: none Estimated Blood Loss (mL): 20 Fluids Replaced: 1200 Description of Procedure: The patient was taken to the operating room where she was prepped and draped in the dorsolithotomy position. A weighted speculum was placed in the vagina and the anterior lip of the cervix was grasped with a tenaculum. The uterine manipulator was placed and the remainder of the instruments were removed from the vagina. Attention was turned to the abdomen. All port sites were infiltrated with 0.5% Marcaine before skin incisions were made. A 5 mm intraumbilical incision was made. The anterior abdominal wall was tented up with 2 towel clamps while a 5 mm blade less trocar and sleeve were directly inserted. Intraperitoneal placement was confirmed with the laparoscope. The pneumoperitoneum was created and the underlying abdominal contents were intact. The patient was placed in Trendelenburg. Right and left lower quadrant ports were placed under direct visualization lateral to the inferior epigastric vessels. The bowel was swept away and the above findings were noted. The LigaSure device was used to clamp seal and transect the antimesenteric portions of the left tube tube to the cornual insertion of the uterus. The tube was amputated from the uterus and the pedicles were all confirmed to be hemostatic. The right ovary was noted to be significantly enlarged and torsed once on its pedicle. The ureter was identified and the infundibulopelvic ligament was then clamped, sealed and transected with the LigaSure device. The utero-ovarian ligament was clamped, transected and sealed with the LigaSure device. The tube was clamped, sealed and transected with the LigaSure device as part of the utero-ovarian ligament. The remaining portion of the broad ligament between the 2 pedicles was clamped, sealed and transected with the LigaSure device and excellent hemostasis was noted. The umbilical port was then extended and the right tube and ovary placed in an Endo Catch bag. It was brought up to the incision where the where a portion of the ovarian cyst was ruptured to allow it to removed through the umbilical incision. No contents were spilled in the intraperitoneal cavity. The fascia of the umbilical incision was then closed with 0 Vicryl suture in a running standard fashion. The underlying abdominal contents were examined with the laparoscope and excellent hemostasis the pedicles was noted. The INVESTIGATIVE WRITER then closed the skin incisions with me present in the operating room. They were closed with Monocryl suture and skin glue. Attention was then turned to the vaginal portion of the case. The Evelyne uterine manipulator was removed. The cervix was dilated serially with Hegar dilators. The 5mm hysteroscope was placed into the uterine cavity and the above findings were noted. Bilateral tubal ostia were identified. The uterus sounded to 10cm and the cervical length was 4.5cm. The endometrial cavity length was 5.5cm. The hysteroscope was removed. A gentle sharp curettage was done of the uterine cavity. The specimen was handed off and sent to pathology. The Le device was set to 5 cm. The instrument was then seated into the endometrial cavity and the indicator was in the green. The cervical seal balloon was inflated and the uterine integrity test was passed. The ablation procedure was initiated and completed without interruption. During the ablation procedure gentle traction was held on the tenaculum and the Le device was held up against the uterine fundus. When the ablation procedure was completed the Le was removed. The tenaculum was removed and the tenaculum site was noted to be hemostatic. All sponge and needle counts were correct. A vaginal sweep was performed by me. The patient was awakened and taken to the recovery room in stable condition. Hysteroscopic ins: 150cc normal saline Hysteroscopic outs:50cc Grafts/Implants Used: none Procedure Start Time: 12:19 Procedure Stop Time: 13:02 Complications none Admit VTE Documentation VTE Present on Admission: No VTE Mechan Device Prophylaxis: SCD's VTE Pharm Prophylaxis ordered?: No Reason prophylaxis not ordered:: Procedure Not Indicated
[2023-01-24] MEDS: Bupivacaine Mpf 0.5% 30 ML VIAL (11:33)
[2023-01-24] MEDS: oxyCODONE 5 MG Tablet PO (13:32)
== END 2023-01-24 15:14 | disposition home or self-care (01) ==
LOC: SDC 09:19 → AC 09:19
PROVIDERS: Referring Provider Obstetrics & Gynecology; Visit Provider Obstetrics & Gynecology
PROC: (CPT 58720; principal; 2023-01-24 10:30)
PROC: 0U5B8ZZ Destruction of Endometrium, Via Natural or Artificial Opening Endoscopic (ICD-10-PCS; CPT 58558; 2023-01-24 10:30)
DX: Z30.2 Encounter for sterilization (principal); D27.0 Benign neoplasm of right ovary; N92.0 Excessive and frequent menstruation with regular cycle; N84.0 Polyp of corpus uteri; N83.8 Other noninflammatory disorders of ovary, fallopian tube and broad ligament
CPT/HCPCS: 58558; 58661; 00952; 36415; 81025; 86850; 86900; 86901; 88305; 88307; 88311; J7120; J2405